=== PATIENT | female | born 2000 | race Caucasian/White ===

== ENCOUNTER 2021-08-04 12:02 | Emergency (ER) | payer OTHER ==
[2021-08-04 12:48] VITALS: BP 116/78; PULSE 72; TEMP 99.2; BMI 35.5
[2021-08-04 13:34] LABS: HEMOGLOBIN 13.1 G/dL (10.7-15.3); MCH 30.5 pg (25.7-33.7); MCHC 35.5 g/dl (32.0-36.0); MEAN CELL VOLUME 85.8 fl (80-96); MEAN PLT VOLUME 7.7 fl (7.5-11.1); PLATELET COUNT 234.4 10^3/uL (134-434); RBC 4.31 10^6/uL (3.60-5.2); RDW 14.5 % (11.6-15.6); WHITE BLOOD COUNT 12.5 10^3/uL (4.0-10.8)
[2021-08-04 13:55] LABS: ALBUMIN 4.4 g/dl (3.4-5.0); BILIRUBIN,TOTAL 0.5 mg/dl (0.2-1); CALCIUM 9.7 mg/dl (8.5-10); CREATININE 0.7 mg/dl (0.55-1.3); TOT PROT 7.6 g/dl (6.4-8.2)
== END 2021-08-04 15:18 | disposition home or self-care (01) ==
LOC: FER 12:02
DX: R55 Syncope and collapse (principal)
CPT/HCPCS: 36415; 80053; 84703; 85025; 93005; 99284-25